=== PATIENT | female | born 1985 ===

== ENCOUNTER 2019-09-23 21:54 | Emergency (ER) | payer OTHER ==
[~2019-09-23] VITALS: Ht 175.3 cm; Wt 83.9 kg
== END 2019-09-23 22:43 | disposition home or self-care (01) ==
LOC: ER 21:54
DX: M94.0 Chondrocostal junction syndrome [Tietze] (principal)

== ENCOUNTER 2021-01-25 20:49 | Emergency (ER) | payer OTHER ==
[~2021-01-25] VITALS: Ht 175.3 cm; Wt 85.3 kg
== END 2021-01-25 21:58 | disposition home or self-care (01) ==
LOC: ER 20:49
DX: R50.9 Fever, unspecified (principal); B34.9 Viral infection, unspecified